=== PATIENT | female | born 1960 | race Caucasian/White ===

== ENCOUNTER 2021-02-24 07:50 | Outpatient (REF) | payer OTHER, SELFPAY ==
--- NOTE | 2021-02-24 09:33 | MHC.AU.ANO ---
Adult Audiological Evaluation Date of Visit: 02/24/21 Demolitionist Used: Not Applicable Reason for Appointment: Audiologic evaluation due to decreased hearing ability and tinnitus, right ear greater than left. Candace reports these symptoms developed after experiencing a ruptured brain aneurysm in 2018 Does patient feel they have a hearing loss?: Yes If Yes, Which Ear?: Right Ear When Was Hearing Difficulty First Noticed?: Has hearing been tested previously?: No Hearing Handicap Inventory: HHIE SCORE: 32 Based on HHIE score, patient has: Severe perceived hearing handicap Ear History: Recent Ear Pain: Left Ear Family History of Hearing Loss?: Yes: Father Ear Infections in Childhood: Both Ears. Ruptured tympanic membrane as a child, 2 times (ear unknown). History of Ear Wax Buildup: Bothersome Tinnitus/Ringing/Noises in Ears: Both Ears Ear used on the phone: Left Ear Blocked/Full Sensation in Ear(s): Right Ear History of occupational noise exposure?: No History: History: No Medical History: Medical History: Diabetes, Dizziness or Unsteadiness, Head Injury, High Blood Pressure, High Cholesterol, Measles, Mumps, Seizure Disorder, Stroke, Tobacco Use, Vascular Problems Brain surgery (right side) for ruptured aneurysm in 2018 and shunt placement (left side) in 2019. Significant environmental and food allergies. High cholesterol Medication List: Magnesium and Tylenol (as needed) Otoscopy: Right Ear: Unremarkable Left Ear: Unremarkable Tympanometry: Tympanometry performed due to: History of allergies/congestion Right Ear: Non-compliant Middle Ear System (Type B) Left Ear: Normal Middle Ear System (Type A) Acoustic Reflexes: Ipsilateral Probe Right: Absent 500, 1000, 2000, 4000 Hz Probe Left: Present 500, 1000, 2000, 4000 Hz Contralateral: Did not test Otoacoustic Emissions Frequency Range Used: 1.6-8 kHz Right Ear Results: Absent Emissions Analysis: Reduced/absent emissions may be consequence of middle ear dysfunction Left Ear Results: Present 3590-1541 Hz Absent 1412-6540 Hz Analysis: Present emissions suggest normal cochlear function Rules out peripheral hearing loss greater than a mild degree Reduced/absent emissions may be consequence of middle ear dysfunction Hearing Evaluation: Transducer(s) Used: Insert Earphones Bone Conduction Method: Conventional Audiometry Stimuli Used: Pure Tones Right Ear: Description of Hearing: Mild to moderately-severe mixed hearing loss Left Ear: Description of Hearing: Normal hearing thresholds 250-3000 Hz sloping to a moderate high frequency sensorineural hearing loss Speech Recognition Threshold (SRT): Method Used: Monitored Live Voice Stimuli Used: Spondee Words Right Ear: 35 dB HL Left Ear: 15 dB HL Word Discrimination: Method: Recorded Lists Word Lists Used: NU-6 Right Ear: 92% at 75 dB HL Left Ear: 100% at 55 dB HL Recommendations: - Advise medical consultation with an Soccer Commentator for the right middle ear dysfunction with mixed hearing loss - If the loss cannot be treated medically, recommend trial period with amplification Diagnosis: Primary Diagnosis: H69.91 Unspecified Eustachian Tube Dysfunction, Right Ear Secondary Diagnosis: H90.3 Bilateral Sensorineural Hearing Loss Services Performed: Comprehensive Audiological Evaluation (CPT 33622) Diagnostic Otoacoustic Emissions (CPT 02661, 26+TC) Tympanometry and Acoustic Reflexes (CPT 34766) Signature: Provider: Mary Pappas, CCC-A
== END 2021-02-24 07:51 | disposition home or self-care (01) ==
LOC: HO.SH 07:50
PROVIDERS: Visit Provider Internal Medicine Sports Medicine
DX: H90.3 Sensorineural hearing loss, bilateral (principal); H69.91 Unspecified Eustachian tube disorder, right ear
CPT/HCPCS: 92550; 92557; 92588